=== PATIENT | male | born 1935 | race Caucasian/White ===

== ENCOUNTER → 2019-04-20 | Outpatient (CLI) | payer MEDICARE, OTHER | LOC: LB.COAG 10:55 | PROVIDERS: ATTEND Family Medicine | DX: Z48.812 Encounter for surgical aftercare following surgery on the circulatory system (principal); Z79.01 Long term (current) use of anticoagulants; Z95.828 Presence of other vascular implants and grafts | CPT/HCPCS: 85610 ==

== ENCOUNTER 2020-11-25 12:03 | Emergency (ER) | payer MEDICARE, OTHER ==
[2020-11-25 12:25] VITALS: BP 126/64; PULSE 67
--- NOTE | 2020-11-25 12:33 | EDM.PDOC ---
ED HPI GENERAL MEDICAL PROBLEM - General Chief Complaint: General Stated Complaint: HEAD PAIN Time Seen by Provider: 11/25/20 12:33 Source of Information: Reports: Patient History Limitations: Reports: No Limitations - History of Present Illness INITIAL COMMENTS - FREE TEXT/NARRATIVE: right cervical neck pain for 1-2 weeks worse when he turns his head sideways also reports some shoulder discomfort no numbness or tingling - no recent trauma or fall was seen at the PCP clinic last week - was given Flexeril - reports some improvement - but not total resolution of symptoms Onset: Sudden Duration: Day(s): (10) - Related Data Allergies Allergy/AdvReac Type Severity Reaction Status Date / Time hydrocodone [From Vicodin] AdvReac Confusion Verified 11/25/20 12:24 morphine AdvReac Confusion Verified 11/25/20 12:24 Home Meds: Home Meds Ascorbic Acid [Vitamin C] 500 mg PO DAILY 09/18/16 [History] Atenolol/Chlorthalidone [Atenolol-Chlorthalidone 50-25] 1 tab PO DAILY 09/18/16 [History] Glucosamine/D3/Boswellia Coleen [Osteo Bi-Flex Tablet] 1 each PO DAILY 09/18/16 [History] Hydrocortisone [Hydrocortisone 1% Crm] 1 applic TOP BID PRN 09/18/16 [History] Niacin [Niacin ER] 500 mg PO DAILY 09/18/16 [History] Nystatin [Nystatin Crm] 1 applic TOP TID PRN 09/18/16 [History] Potassium Chloride 10 meq PO DAILY 09/18/16 [History] Vitamin B Complex 1 each PO DAILY 09/18/16 [History] Warfarin Sodium [Jantoven] 4 mg PO DAILY 09/18/16 [History] Aloe Vera 5,000 mg PO DAILY 05/10/18 [History] Calcium Lactate 100 mg PO DAILY 05/10/18 [History] Acetaminophen [Tylenol Extra Strength] 500 mg PO Q8H tablet 05/11/18 [Rx] Acetaminophen/HYDROcodone [[place] 325-5 MG] 1 tab PO Q8H tablet 05/11/18 [Rx] Past Medical History HEENT History: Reports: Impaired Vision, Macular Degeneration, Other (See Below) Other HEENT History: nose bleeds had cauderized Cardiovascular History: Reports: Blood Clots/VTE/DVT, Heart Murmur, Hypertension, Other (See Below) Respiratory History: Reports: None Gastrointestinal History: Reports: GERD Genitourinary History: Reports: Prostate Disorder, Other (See Below) Other Genitourinary History: 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 Musculoskeletal History: Reports: Osteoarthritis Psychiatric History: Reports: None Endocrine/Metabolic History: Reports: None Hematologic History: Reports: None Immunologic History: Reports: None Oncologic (Cancer) History: Reports: None Dermatologic History: Reports: None - Past Surgical History HEENT Surgical History: Reports: Other (See Below) GI Surgical History: Reports: Appendectomy, Cholecystectomy, Hernia Repair/Other Neurological Surgical History: Reports: Lumbar Spine, Spinal Fusion Musculoskeletal Surgical History: Reports: Hip Replacement, Knee Replacement, Shoulder Surgery, Other (See Below) ED ROS GENERAL - Review of Systems Review Of Systems: See Below Constitutional: Reports: No Symptoms Respiratory: Reports: No Symptoms Cardiovascular: Reports: No Symptoms GI/Abdominal: Reports: No Symptoms : Reports: No Symptoms Skin: Reports: No Symptoms Neurological: Reports: No Symptoms ED EXAM, GENERAL - Physical Exam Exam: See Below Exam Limited By: No Limitations General Appearance: Alert, WD/WN Eye Exam: Bilateral Eye: EOMI Head: Atraumatic, Normocephalic Neck: Normal Inspection, Other (mild discomfort in turning head to the right ) Respiratory/Chest: No Respiratory Distress, Lungs Clear Cardiovascular: Regular Rate, Rhythm Extremities: Normal Inspection, Normal Range of Motion, Non-Tender Neurological: Alert, Oriented, No Motor/Sensory Deficits Skin Exam: Warm, Dry, Intact, Normal Color, No Rash Course - Vital Signs Last Recorded V/S: Last Vital Signs Temp 36.1 C 11/25/20 12:38 Pulse 67 11/25/20 12:38 Resp 16 11/25/20 12:38 BP 126/64 11/25/20 12:38 Pulse Ox 99 11/25/20 12:38 - Orders/Labs/Meds Meds: Medications Discontinued Medications Generic Name Dose Route Start Last Admin Trade Name Freq PRN Reason Stop Dose Admin Ketorolac Tromethamine 60 mg 11/25/20 12:39 11/25/20 12:30 Ketorolac 60 Mg/2 Ml Sdv IM 11/25/20 12:40 60 mg ONETIME ONE Administration Ketorolac Tromethamine Confirm 11/25/20 12:52 Ketorolac 60 Mg/2 Ml Sdv Administered 11/25/20 12:53 Dose 60 mg .ROUTE .STK-MED ONE - Re-Assessments/Exams Free Text/Narrative Re-Assessment/Exam: vitals WNL Im Toradol 60mg was given - reports significant improvement in symptoms - able to move head sideways much easier and 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 Departure - Departure Time of Disposition: 13:25 Disposition: Home, Self-Care 01 Condition: Good Clinical Impression: Right cervical radiculopathy - Discharge Information *PRESCRIPTION DRUG MONITORING PROGRAM REVIEWED*: Not Applicable *COPY OF PRESCRIPTION DRUG MONITORING REPORT IN PATIENT TAHMINA: Not Applicable Instructions: Cervical Radiculopathy, Cervical Radiculopathy, [id number] Referrals: Bin Pina MD [Primary Care Provider] - Forms: ED Department Discharge Sepsis Event Note (ED) - Focused Exam Vital Signs: Vital Signs Temp Pulse Resp BP Pulse Ox 11/25/20 12:38 36.1 C 67 16 126/64 99 11/25/20 12:10 36.5 C 67 16 126/64 98 - Problem List & Annotations (1) Right cervical radiculopathy SNOMED Code(s): 38021976796598382 Code(s): M54.12 - RADICULOPATHY, CERVICAL REGION Status: Acute Priority: Low Current Visit: Yes - Problem List Review Problem List Initiated/Reviewed/Updated: Yes - Assessment/Plan Plan: - continue with muscle relaxants as befor - apply head or cold packs on the affected muscle to help loosen it up - avoid sleeping on your right side until symptoms improve - follow up with your PCP in 1-2 weeks if symptoms persisted - return to the ER if symptoms got worse or any concerns
[2020-11-25] MEDS ORDERED: Ketorolac 60 MG/2 ML SDV IM ONE (12:39)
[2020-11-25] MEDS ORDERED: Ketorolac 60 MG/2 ML SDV ONE (12:52)
== END 2020-11-25 13:36 | disposition home or self-care (01) ==
LOC: LB.ED 12:03
DX: M54.12 Radiculopathy, cervical region (principal); I10 Essential (primary) hypertension; Z79.01 Long term (current) use of anticoagulants; Z79.899 Other long term (current) drug therapy; Z88.5 Allergy status to narcotic agent; Z88.6 Allergy status to analgesic agent
CPT/HCPCS: 96372; 99283; J1885

== ENCOUNTER 2024-04-06 05:26 | Emergency (ER) | payer MEDICARE, OTHER ==
[2024-04-06 07:03] LABS: INFLUENZA A NAA NEGATIVE (NEGATIVE); INFLUENZA B NAA NEGATIVE (NEGATIVE); RESPIRATORY SYNCYTIAL VIR NAA NEGATIVE (NEGATIVE)
[2024-04-06 07:06] LABS: CORONAVIRUS COVID-19 NAA NEGATIVE (NEGATIVE)
[2024-04-06 07:12] VITALS: BP 109/55
[2024-04-06 07:50] VITALS: PULSE 63
== END 2024-04-06 07:20 | disposition home or self-care (01) ==
LOC: LB.ED 05:26
DX: J06.9 Acute upper respiratory infection, unspecified (principal); B97.89 Other viral agents as the cause of diseases classified elsewhere; I10 Essential (primary) hypertension; E66.9 Obesity, unspecified; Z90.49 Acquired absence of other specified parts of digestive tract; Z87.891 Personal history of nicotine dependence; Z79.899 Other long term (current) drug therapy; Z79.01 Long term (current) use of anticoagulants; Z88.5 Allergy status to narcotic agent; Z68.30 Body mass index [BMI] 30.0-30.9, adult
CPT/HCPCS: 0241U; 99284; 99283

== ENCOUNTER 2024-06-25 18:50 | Emergency (ER) | payer MEDICARE, OTHER ==
[2024-06-25 19:35] LABS: APPEARANCE,URINE TURBID (CLEAR); COLOR,URINE RED
[2024-06-25 19:36] LABS: RBC,URINE >100 /HPF; WBC,URINE NOT SEEN /HPF
[2024-06-25 19:43] LABS: PH,URINE 5.5 (5.0-8.0)
[2024-06-25 19:44] LABS: BILIRUBIN,URINE NEGATIVE (NEGATIVE); GLUCOSE,URINE NEGATIVE (NEGATIVE); KETONES,URINE NEGATIVE (NEGATIVE); NITRITE,URINE NEGATIVE (NEGATIVE); PROTEIN,URINE 100 mg/dL (NEGATIVE); UROBILINOGEN,URINE 0.2 E.U./dL (0.2-1.0)
[2024-06-25 19:48] LABS: LEUKOCYTE ESTERASE,URINE UNABLE TO REPORT (NEGATIVE); OCCULT BLOOD,URINE UNABLE TO REPORT (NEGATIVE)
[2024-06-25] MEDS ORDERED: Phenazopyridine 100 MG Tab ONE (20:00)
[2024-06-25 20:25] LABS: INR 2.3 (1.0-3.5)
[2024-06-25 20:48] VITALS: BP 147/56; PULSE 66
== END 2024-06-25 20:40 | disposition home or self-care (01) ==
LOC: LB.ED 18:52
DX: R31.0 Gross hematuria (principal); R30.0 Dysuria; I10 Essential (primary) hypertension; E66.9 Obesity, unspecified; Z68.30 Body mass index [BMI] 30.0-30.9, adult; Z90.49 Acquired absence of other specified parts of digestive tract; Z96.649 Presence of unspecified artificial hip joint; Z96.659 Presence of unspecified artificial knee joint; Z88.5 Allergy status to narcotic agent; Z88.6 Allergy status to analgesic agent; Z79.01 Long term (current) use of anticoagulants; Z79.899 Other long term (current) drug therapy
CPT/HCPCS: 36415; 81001; 85610; 99283; A9270-GY